=== PATIENT | male | born 2000 | race Caucasian/White ===

== ENCOUNTER 2020-10-06 09:26 | Day surgery (SDC) | payer MEDICAID ==
[~2020-10-06] VITALS: Ht 182.9 cm; Wt 73.2 kg
[2020-10-06] MEDS ORDERED: MAALOX/HYOSCYAMINE/LIDOCAINE 45 ML BTL PO ONE (10:00)
[2020-10-06 10:31] LABS: BASOPHILS % (AUTO) 0 % (0-1); EOSINOPHILS % (AUTO) 0 % (1-7); LYMPHOCYTES % (AUTO) 5 % (22-44); MEAN CORPUSCULAR HEMOGLOBIN 30.6 pg (27.5-34.5); MEAN CORPUSCULAR HGB CONC 34.5 g/dL (33.2-36.2); MEAN PLATELET VOLUME 8.6 fL (7.4-10.4); MONOCYTES % (AUTO) 9 % (2-9); NEUTROPHILS % (AUTO) 86 % (42-75); PLATELET COUNT 207 x10^3/uL (130-400); RED BLOOD COUNT 4.75 x10^6/uL (4.38-5.82); RED CELL DISTRIBUTION WIDTH 12.1 % (9.4-14.8)
[2020-10-06] MEDS ORDERED: MAALOX/HYOSCYAMINE/LIDOCAINE 45 ML BTL ONE (10:32)
[2020-10-06 10:34] LABS: MD NO
[2020-10-06 10:37] LABS: ALBUMIN 4.5 g/dL (3.4-5.0); ANION GAP 6 mmol/L (5-15); CALCIUM 9.8 mg/dL (8.5-10.1); CHLORIDE 105 mmol/L (98-107)
[2020-10-06 10:40] LABS: ALANINE AMINOTRANSFERASE 22 U/L (12-78); ALKALINE PHOSPHATASE 56 U/L (45-117); BILIRUBIN,TOTAL 2.3 mg/dL (0.2-1.0); CREATININE 1.11 mg/dL (0.7-1.3); TOTAL PROTEIN 7.9 g/dL (6.4-8.2)
--- NOTE | 2020-10-06 10:42 | NUR ---
PT STATES HE HAD A BURNING SINSATION IN ABD THAT RESOLVES WHEN SITTING UP, BUT IS NOW MORE OF A SHARP PAIN IN LOWER ABD, ADMIN GI COCKTAIL,
--- NOTE | 2020-10-06 11:40 | NUR ---
Rodríguez castillo in [facility] - 10/06/20 at [address] PT [address] CT
--- NOTE | 2020-10-06 11:42 | NUR ---
NO PAIN RELIEF FROM GI COCKTAIL, PT SITTING UP IN BED, NO DISTRESS
[2020-10-06] MEDS ORDERED: ONDANSETRON 2MG/ML, 2ML IVPush ONE (12:00)
[2020-10-06] MEDS ORDERED: SODIUM CHLORIDE FLUSH 10ML SYR IVF ONE (12:00)
[2020-10-06] MEDS ORDERED: MORPHINE SULFATE 4 MG/ML, 1ML IVPush PRN ×2 (12:00→13:00)
[2020-10-06] MEDS ORDERED: OMNIPAQUE 350 MG/ML, 100ML BOTTLE ONE (12:18)
[2020-10-06] MEDS ORDERED: ONDANSETRON 2MG/ML, 2ML ONE ×2 (12:25→14:38)
[2020-10-06] MEDS ORDERED: MORPHINE SULFATE 4 MG/ML, 1ML ONE (12:26)
[2020-10-06 12:38] VITALS: BP 140/80
--- NOTE | 2020-10-06 12:40 | NUR ---
PT BACK FROM CT, VSS, ADMIN PAIN MEDS, PT READY FOR OR,
[2020-10-06] MEDS ORDERED: CEFOTETAN PMX 2GM/50ML 50 ML IVPB ONE (13:00)
[2020-10-06] MEDS ORDERED: SODIUM CHLORIDE 0.9% 1,000ML IVBOLUS ONE (13:00)
[2020-10-06] MEDS ORDERED: ONDANSETRON 2MG/ML, 2ML IVPush PRN ×2 (13:00→15:30)
[2020-10-06] MEDS ORDERED: BUPIVACAINE/PF 0.5% ONE (13:04)
[2020-10-06] MEDS ORDERED: EPINEPHRINE 1 MG/ML, 1ML ONE (13:04)
[2020-10-06] MEDS ORDERED: CHLORHEXIDINE 15 ML UDC MM ONE (13:30)
[2020-10-06] MEDS ORDERED: FENTANYL PF 100 MCG/2ML ONE (13:56)
[2020-10-06] MEDS ORDERED: SODIUM CHLORIDE 0.9% 1,000 ML IV ONE (14:00)
[2020-10-06] MEDS ORDERED: SODIUM CHLORIDE FLUSH 10ML SYR IVF PRN (14:00)
[2020-10-06] MEDS ORDERED: LIDOCAINE-MPF 2% ,5ML ONE (14:38)
[2020-10-06] MEDS ORDERED: DEXAMETHASONE 4 MG/ML, 5ML ONE (14:38)
[2020-10-06] MEDS ORDERED: KETOROLAC 30 MG/1 ML ONE (14:38)
[2020-10-06] MEDS ORDERED: SUGAMMADEX 200 MG/2 ML IVPush ONE (14:38)
[2020-10-06] MEDS ORDERED: ROCURONIUM 10MG/ML,5ML ONE (14:38)
[2020-10-06] MEDS ORDERED: EPHEDRINE 50 MG/ML, 1ML ONE (14:38)
[2020-10-06] MEDS ORDERED: CEFAZOLIN 1,000 MG ONE (14:38)
[2020-10-06] MEDS ORDERED: PROPOFOL 10 MG/ML, 20ML ONE (14:38)
[2020-10-06] MEDS ORDERED: MIDAZOLAM 1 MG/ML, 2ML ONE (14:47)
[2020-10-06] MEDS ORDERED: DIAZEPAM 5 MG/ML, 2ML IVPush PRN (15:30)
[2020-10-06] MEDS ORDERED: METOCLOPRAMIDE 5 MG/ML, 2ML IVPush PRN (15:30)
[2020-10-06] MEDS ORDERED: OXYcodone 5 MG/5 ML ORAL.SOL UDC PO PRN (15:30)
[2020-10-06] MEDS ORDERED: EPHEDRINE 50 MG/ML, 1ML IVPush PRN (15:30)
[2020-10-06] MEDS ORDERED: PROMETHAZINE 12.5 MG SUPP PR PRN (15:30)
[2020-10-06] MEDS ORDERED: METOPROLOL 1 MG/ML, 5ML IV PRN (15:30)
[2020-10-06] MEDS ORDERED: ACETAMINOPHEN 325 MG TABLET PO PRN (15:30)
[2020-10-06] MEDS ORDERED: MEPERIDINE/PF 25MG/0.5ML IVPush PRN (15:30)
[2020-10-06] MEDS ORDERED: hydrALAzine 20 MG/ML, 1ML IV PRN (15:30)
[2020-10-06] MEDS ORDERED: HYDROmorphone 1 MG/ML, 1ML INJ IVPush PRN (15:30)
[2020-10-06] MEDS ORDERED: LABETALOL 5MG/ML, 20ML IV PRN (15:30)
[2020-10-06] MEDS ORDERED: FENTANYL PF 100 MCG/2ML IV PRN (15:30)
[2020-10-06] MEDS ORDERED: HALOPERIDOL 5 MG/ML IV PRN (15:30)
[2020-10-06] MEDS ORDERED: DIPHENHYDRAMINE 50 MG/ML, 1ML IVPush PRN (15:30)
[2020-10-06] MEDS ORDERED: OXYcodone 5 MG/5 ML ORAL.SOL UDC ONE (15:59)
== END 2020-10-06 17:25 | disposition home or self-care (01) ==
LOC: ED 10:55 → UNDOADMIN 13:07 → EDIP 13:07 → OUT 13:50 → UNDODISIN 17:25 → OUT 17:25
PROVIDERS: ATTEND Surgery
DX: K35.30 Acute appendicitis with localized peritonitis, without perforation or gangrene (principal); Z20.822 Contact with and (suspected) exposure to COVID-19
CPT/HCPCS: 36415; 44970; 74177; 80053; 83690; 85025; 87635; 88304; 96374; 99285; J0171; J0690; J1100; J1885; J2250; J2405; J2704; J3010; Q9967